=== PATIENT | female | born 1950 | race Caucasian/White ===

== ENCOUNTER 2017-12-11 15:44 | Emergency (ER) | payer OTHER, MEDICARE ==
[~2017-12-11] VITALS: Ht 158.8 cm; Wt 81.5 kg
[2017-12-11 15:47] VITALS: Ht 158.8 cm; Wt 81.5 kg
--- NOTE | 2017-12-11 15:58 | EMERGENCY ROOM VISIT NOTE ---
History Report prepared by Esther: Sony Maya Under the Supervision of: Dr. Kenroy Morales M.D. First contact with patient: 15:58 Chief Complaint: ABDOMINAL PAIN Stated Complaint: PAIN LEFT LOWER ABDOMEN History of Present Illness The patient is a 67 year old female with a history of a tummy tuck who presents to the Emergency Room with complaints of worsening left lower abdominal pain that started a couple weeks ago. She says that the pain does not hurt to press. She states that the pain initially started as a mild burning, but it has worsened in frequency and duration over the past couple days. The patient notes that there is no pain if she is not moving, but upon any movement, she gets the pain. She adds that the pain sometimes gets very sharp. She says that she has never had abdominal pain like this before. The patient says that she wants to get checked because she is going away to [place] in a few days. She says that she has been a bit constipated recently, and she had 2 bowel movements today but she had to push hard. She denies any back pain, nausea, vomiting, diarrhea, fevers, chills, or urinary symptoms. The patient states that she has been able to eat and drink fine. She takes a baby Aspirin but no other blood thinners. She still has her gallbladder and appendix. Source of History: patient Onset: A couple weeks ago Position: abdomen (LLQ) Symptom Intensity: only upon movement Quality: sharp Timing: worsening Modifying Factors (Worsening): movement Modifying Factors (Relieving): other (not moving) Associated Symptoms: No fevers, No chills, No nausea, No vomiting, No back pain, No diarrhea, No urinary symptoms Note: Associated symptoms: A bit constipated recently. Review of Systems See HPI for pertinent positives and negatives. A total of ten systems were reviewed and were otherwise negative. Past Medical & Surgical Medical Problems: (1) No pertinent past medical history Surgical Problems: (1) History of abdominoplasty Family History No pertinent family history Social History Smoking Status: Never Smoker Alcohol Use: none Marital Status: Housing Status: lives with family Occupation Status: unemployed Current/Historical Medications Scheduled Aspirin (Aspirin Ec), 81 MG PO DAILY Atorvastatin (Lipitor), 20 MG PO DAILY Calcium/Vitamin D (Os-Filiberto 500 Plus D), 1 TAB PO DAILY Magnesium Oxide (Magnesium), 500 MG PO DAILY Multivitamin (Multivitamin), 1 TAB PO DAILY Omeprazole (Prilosec), 20 MG PO DAILY Allergies Coded Allergies: NSAIDs (Unverified Allergy, Unknown, GI ISSUES, 12/11/17) Physical Exam Vital Signs Date Time Temp Pulse Resp B/P (MAP) Pulse Ox O2 Delivery O2 Flow Rate FiO2 12/11/17 17:57 36.5 59 18 155/71 96 12/11/17 17:40 59 18 155/71 96 Room Air 12/11/17 15:47 36.5 59 18 167/76 96 Room Air Physical Exam GENERAL: Awake, alert, well-appearing, in no distress HENT: Normocephalic, atraumatic. Dry mucous membranes. EYES: Normal conjunctiva. Sclera non-icteric. NECK: Supple. No nuchal rigidity. FROM. No JVD. RESPIRATORY: Clear to auscultation. CARDIAC: Regular rate, normal rhythm. Extremities warm and well perfused. Pulses equal. ABDOMEN: Soft, non-distended. No tenderness to palpation. No rebound or guarding. No masses. RECTAL: Deferred. MUSCULOSKELETAL: Chest examination reveals no tenderness. The back is symmetrical on inspection without obvious abnormality. There is no CVA tenderness to palpation. No joint edema. LOWER EXTREMITIES: Calves are equal size bilaterally and non-tender. No edema. No discoloration. NEURO: Normal sensorium. No sensory or motor deficits noted. SKIN: No rash or jaundice noted. Medical Decision & Procedures ER Provider Diagnostic Interpretation: CT: Radiology results as stated below per my review and radiologist interpretation ABD/PELVIS IV CONTRAST ONLY CLINICAL HISTORY: 67 years-old Female presenting with LLQ pain. TECHNIQUE: Multidetector CT of the abdomen and pelvis was performed after the administration of intravenous contrast. IV contrast: 93 mL of Optiray 320. A dose lowering technique was used consistent with the principles of ALARA (as low as reasonably achievable). COMPARISON: None. CT DOSE (mGy.cm): The estimated cumulative dose is 388.75 mGy.cm. FINDINGS: [employer] topogram: Unremarkable. Lung bases: Lungs and pleural spaces clear. Normal heart size. No pericardial or pleural effusion. Liver: Normal morphology. No liver lesion. Patent hepatic vasculature. Biliary: No intrahepatic or extrahepatic biliary ductal dilatation. Normal gallbladder. Pancreas: Severe parenchymal atrophy. Cystic lesion noted along the proximal tail measuring 11 mm (series 3 image 99) disease, possibly small side branch intraductal papilloma mucinous neoplasm or mucinous cyst. Spleen: Normal. Adrenal glands: Nodular thickening of the adrenal glands with a discrete nodule likely present in the left adrenal gland measuring 1.7 cm. Underlying nodule in the right adrenal gland may also be present. Kidneys and ureters: Normal. No hydronephrosis. Bladder: Mild circumferential bladder wall thickening. Pelvic organs: Uterus and ovaries normal. Bowel: Normal appendix. No bowel obstruction. Post surgical changes of antecolic Sarah-en-Y gastric bypass. Patent anastomoses. Fluid noted in the excluded stomach though the pancreaticobiliary limb is nondilated. Peritoneal cavity: No free fluid or intraperitoneal gas. Lymph nodes: No enlarged lymph nodes in the abdomen or pelvis. Vasculature: Atherosclerosis of the normal caliber abdominal aorta. IVC patent. Abdominal wall: Postsurgical changes of ventral hernia repair in the midline infraumbilical abdomen likely present. No associated fluid or inflammatory change. Musculoskeletal: Degenerative changes of the spine. IMPRESSION: 1. Mild circumferential bladder wall thickening could suggest cystitis. Correlate with urinalysis. No specific abnormality in the left lower quadrant. 2. Post surgical changes of Sarah-en-Y gastric bypass without complication. 3. Bilateral adrenal nodules, indeterminate. Electronically signed by: Jeremy Lerner M.D. 12/11/2017 5:26 PM Dictated Date/Time: 12/11/2017 5:20 PM Laboratory Results 12/11/17 16:10 Red Blood Count 4.47, Mean Corpuscular Volume 91.7, Mean Corpuscular Hemoglobin 30.9, Mean Corpuscular Hemoglobin Concent 33.7, Mean Platelet Volume 9.7, Neutrophils (%) (Auto) 52.0, Lymphocytes (%) (Auto) 37.1, Monocytes (%) (Auto) 7.4, Eosinophils (%) (Auto) 2.4, Basophils (%) (Auto) 0.9, Neutrophils # (Auto) 2.82, Lymphocytes # (Auto) 2.01, Monocytes # (Auto) 0.40, Eosinophils # (Auto) 0.13, Basophils # (Auto) 0.05 12/11/17 16:10 Test 12/11/17 16:10 12/11/17 16:16 White Blood Count 5.42 K/uL (4.8-10.8) Red Blood Count 4.47 M/uL (4.2-5.4) Hemoglobin 13.8 g/dL (12.0-16.0) Hematocrit 41.0 % (37-47) Mean Corpuscular Volume 91.7 fL (80-100) Mean Corpuscular Hemoglobin 30.9 pg (25-34) Mean Corpuscular Hemoglobin Concent 33.7 g/dl (32-36) Platelet Count 186 K/uL (130-400) Mean Platelet Volume 9.7 fL (7.4-10.4) Neutrophils (%) (Auto) 52.0 % Lymphocytes (%) (Auto) 37.1 % Monocytes (%) (Auto) 7.4 % Eosinophils (%) (Auto) 2.4 % Basophils (%) (Auto) 0.9 % Neutrophils # (Auto) 2.82 K/uL (1.4-6.5) Lymphocytes # (Auto) 2.01 K/uL (1.2-3.4) Monocytes # (Auto) 0.40 K/uL (0.11-0.59) Eosinophils # (Auto) 0.13 K/uL (0-0.5) Basophils # (Auto) 0.05 K/uL (0-0.2) RDW Standard Deviation 43.3 fL (36.4-46.3) RDW Coefficient of Variation 13.1 % (11.5-14.5) Immature Granulocyte % (Auto) 0.2 % Immature Granulocyte # (Auto) 0.01 K/uL (0.00-0.02) Urine Color YELLOW Urine Appearance CLEAR (CLEAR) Urine pH 7.5 (4.5-7.5) Urine Specific Manning 1.013 (1.000-1.030) Urine Protein NEG (NEG) Urine Glucose (UA) NEG (NEG) Urine Ketones NEG (NEG) Urine Occult Blood NEG (NEG) Urine Nitrite NEG (NEG) Urine Bilirubin NEG (NEG) Urine Urobilinogen NEG (NEG) Urine Leukocyte Esterase NEG (NEG) Anion Gap 4.0 mmol/L (3-11) Est Creatinine Clear Calc Drug Dose 56.7 ml/min Estimated GFR () 71.3 Estimated GFR (Non- 61.5 BUN/Creatinine Ratio 22.0 (10-20) Calcium Level 8.9 mg/dl (8.5-10.1) Total Bilirubin 0.3 mg/dl (0.2-1) Direct Bilirubin < 0.1 mg/dl (0-0.2) Aspartate Amino Transf (AST/SGOT) 20 U/L (15-37) Alanine Aminotransferase (ALT/SGPT) 23 U/L (12-78) Alkaline Phosphatase 139 U/L (45-117) Total Protein 7.2 gm/dl (6.4-8.2) Albumin 3.5 gm/dl (3.4-5.0) Lipase 130 U/L (73-393) Bedside Lactic Acid Venous 0.63 mmol/L (0.90-1.70) Laboratory results reviewed by me Medications Administered Medications (Trade) Dose Ordered Sig/Alfonzo Route Start Time Stop Time Status Last Admin Dose Admin Sodium Chloride 1,000 ml @ 999 mls/hr Q1H1M STAT IV 12/11/17 16:04 12/11/17 17:04 DC 12/11/17 16:23 999 MLS/HR ED Course 1602: The patient was evaluated in room B8. A complete history and physical exam was performed. 1735: I reevaluated the patient and she is resting comfortably. Discussed results and discharge instructions: she verbalized understanding and agreement. The patient is ready for discharge. Medical Decision I reviewed the patient's past medical history, medications, and the nursing notes as described above. Differential diagnosis: Etiologies such as appendicitis, diverticulitis, PUD, biliary pathology, UTI, pancreatitis, obstruction, mesenteric ischemia, aortic pathology, infections, inflammatory bowel disease, renal colic, as well as others were entertained. The patient is a 67-year-old woman who presents emergency department with left lower quadrant pain that has been ongoing for the past several weeks per hpi. However the patient is well-appearing, in no acute distress, afebrile stable vital signs. Labs are unremarkable including WBC and lactate within normal limits. UA negative. CT scan unremarkable without any acute findings. Patient feeling improved after IVF hydration. Unclear etiology to patient's sx at this time, however unlikely to have emergent process given 3 weeks of sx. Findings and plan for follow-up reviewed with patient. Patient agreeable and d/c'd per discharge instructions. Medication Reconcilliation Current Medication List: was personally reviewed by me Blood Pressure Screening Patient's blood pressure: Elevated blood pressure Blood pressure disposition: Elevated BP felt to be situational Impression Primary Impression: Left lateral abdominal pain Scribe Attestation The scribe's documentation has been prepared under my direction and personally reviewed by me in its entirety. I confirm that the note above accurately reflects all work, treatment, procedures, and medical decision making performed by me. Departure Information Dispostion Home / Self-Care Referrals No Doctor, Assigned (PCP) Patient Instructions ED Abdominal Pain Unkn Cause, My [facility] Additional Instructions Please follow up with your primary care physician in the next 1-3 days for re- evaluation. The cause of your symptoms is unclear at this time. However, your exam, lab results, CT scan did not show signs of an emergent condition at this time. Acetaminophen for pain and fevers as needed. Drink plenty of fluids to ensure hydration. Return to the emergency department for worsening symptoms as described in the accompanying instructions.
[2017-12-11] MEDS ORDERED: PRLSR20 PO (16:01)
[2017-12-11] MEDS ORDERED: CALC500C70 PO (16:01)
[2017-12-11] MEDS ORDERED: ATOR-22 PO (16:01)
[2017-12-11] MEDS ORDERED: ASPI81TA28 PO (16:01)
[2017-12-11] MEDS ORDERED: MULT-506 PO (16:01)
[2017-12-11] MEDS ORDERED: MAGN1CAP4 PO (16:02)
[2017-12-11] MEDS ORDERED: SODIUM CHLORIDE 0.9% 1000ML 1,000 ML IV STA (16:04)
[2017-12-11] MEDS ORDERED: OPTIRAY 320 IV PRN (16:15)
[2017-12-11 16:29] LABS: BASO % 0.9 %; BASO ABS # 0.05 K/uL (0-0.2); EOS % 2.4 %; EOS ABS # 0.13 K/uL (0-0.5); HEMOGLOBIN 13.8 g/dL (12.0-16.0); IG# 0.01 K/uL (0.00-0.02); LYMPH % 37.1 %; LYMPH ABS # 2.01 K/uL (1.2-3.4); MEAN CELL VOLUME 91.7 fL (80-100); MEAN CORPUSCULAR HEMOGLOBIN 30.9 pg (25-34); MEAN CORPUSCULAR HGB CONC 33.7 g/dl (32-36); MEAN PLATELET VOLUME 9.7 fL (7.4-10.4); MONO % 7.4 %; NEUT ABS # 2.82 K/uL (1.4-6.5); PLATELET COUNT 186 K/uL (130-400); RED CELL DISTRIBUTION WIDTH CV 13.1 % (11.5-14.5); RED CELL DISTRIBUTION WIDTH SD 43.3 fL (36.4-46.3); WHITE BLOOD COUNT 5.42 K/uL (4.8-10.8)
[2017-12-11 16:48] LABS: ALBUMIN 3.5 gm/dl (3.4-5.0); ALT/SGPT 23 U/L (12-78); AST/SGOT 20 U/L (15-37); BLOOD UREA NITROGEN 21 mg/dl (7-18); CALCIUM 8.9 mg/dl (8.5-10.1); CARBON DIOXIDE 30 mmol/L (21-32); CREATININE 0.95 mg/dl (0.60-1.20); GLUCOSE 99 mg/dl (70-99); LIPASE 130 U/L (73-393); POTASSIUM 4.1 mmol/L (3.5-5.1); SODIUM 139 mmol/L (136-145)
[2017-12-11 16:50] LABS: ALKALINE PHOSPHATASE 139 U/L (45-117); TOTAL PROTEIN 7.2 gm/dl (6.4-8.2)
--- NOTE | 2017-12-11 17:27 | DIAGNOSTIC IMAGING REPORT ---
ABD/PELVIS IV CONTRAST ONLY CLINICAL HISTORY: 67 years-old Female presenting with LLQ pain. TECHNIQUE: Multidetector CT of the abdomen and pelvis was performed after the administration of intravenous contrast. IV contrast: 93 mL of Optiray 320. A dose lowering technique was used consistent with the principles of ALARA (as low as reasonably achievable). COMPARISON: None. CT DOSE (mGy.cm): The estimated cumulative dose is 388.75 mGy.cm. FINDINGS: Perioperative Nurse topogram: Unremarkable. Lung bases: Lungs and pleural spaces clear. Normal heart size. No pericardial or pleural effusion. Liver: Normal morphology. No liver lesion. Patent hepatic vasculature. Biliary: No intrahepatic or extrahepatic biliary ductal dilatation. Normal gallbladder. Pancreas: Severe parenchymal atrophy. Cystic lesion noted along the proximal tail measuring 11 mm (series 3 image 99) disease, possibly small side branch intraductal papilloma mucinous neoplasm or mucinous cyst. Spleen: Normal. Adrenal glands: Nodular thickening of the adrenal glands with a discrete nodule likely present in the left adrenal gland measuring 1.7 cm. Underlying nodule in the right adrenal gland may also be present. Kidneys and ureters: Normal. No hydronephrosis. Bladder: Mild circumferential bladder wall thickening. Pelvic organs: Uterus and ovaries normal. Bowel: Normal appendix. No bowel obstruction. Post surgical changes of antecolic Sarah-en-Y gastric bypass. Patent anastomoses. Fluid noted in the excluded stomach though the pancreaticobiliary limb is nondilated. Peritoneal cavity: No free fluid or intraperitoneal gas. Lymph nodes: No enlarged lymph nodes in the abdomen or pelvis. Vasculature: Atherosclerosis of the normal caliber abdominal aorta. IVC patent. Abdominal wall: Postsurgical changes of ventral hernia repair in the midline infraumbilical abdomen likely present. No associated fluid or inflammatory change. Musculoskeletal: Degenerative changes of the spine. IMPRESSION: 1. Mild circumferential bladder wall thickening could suggest cystitis. Correlate with urinalysis. No specific abnormality in the left lower quadrant. 2. Post surgical changes of Sarah-en-Y gastric bypass without complication. 3. Bilateral adrenal nodules, indeterminate. Electronically signed by: Jeremy Lerner M.D. 12/11/2017 5:26 PM Dictated Date/Time: 12/11/2017 5:20 PM
[2017-12-11 17:57] VITALS: BP 155/71; PULSE 59; TEMP 36.5; O2SAT 96
== END 2017-12-11 17:58 | disposition home or self-care (01) ==
LOC: C.EDB 15:45
DX: R10.32 Left lower quadrant pain (principal); Z79.82 Long term (current) use of aspirin; Z79.899 Other long term (current) drug therapy; Z88.8 Allergy status to other drugs, medicaments and biological substances